=== PATIENT | male | born 1950 | race Caucasian/White ===

== ENCOUNTER 2019-02-27 05:45 | Day surgery (SDC) | payer MEDICARE, OTHER ==
[~2019-02-27] VITALS: Ht 180.3 cm; Wt 77.1 kg
[~2019-02-27 05:45] MED LIST: ACETAMINOPHEN325 M1 PO; ASPIRIN EC325 MG PO; ASPIRIN EC81 MG PO; ASPIRIN325 MG PO; DILAUDID2 MG PO; DILTIAZEM ER180 MG PO; FINASTERIDE5 MG PO; FLEXERIL10 MG PO; FLEXERIL5 MG PO; IBUPROFEN800 MG PO; ISOSORBIDE MONO30 MG PO; LIPITOR40 MG PO; LISINOPRIL5 MG PO; METOPROLOL TART25 MG PO; NEURONTIN100 MG PO; NITROGLYCERIN0.4 MG SL; RANITIDINE HCL150 M1 PO; TAMSULOSIN HCL0.4 MG PO; TRAMADOL HCL50 MG PO
--- NOTE | 2019-02-27 07:03 | NUR ---
0615) HEART RATE UP TO 118 UPON ARRIVAL. PATIENT DIDN'T TAKE DILTIAZEM TODAY AND DIDN'T DRINK MUCH WATER YESTURDAY. PER JURGEN DELANEY 500 ML BOLUS GIVEN. 0630) HEART RATE 104.
--- NOTE | 2019-02-27 08:18 | NUR ---
02/27/19 0818 Shawna Salas 0805 PT ARRIVED IN PACU SLEEPY LAYING ON L SIDE. 0810 OXYGEN REMOVED. PT AWAKE SITTING UP IN BED. NO C/O'S. 0818 SIPPING ON WATER.
--- NOTE | 2019-02-27 09:33 | NUR ---
PT ALERT, ORIENTED AND SUPPORTED BY HIS ZECHARIAH. BOTH SEEM PLEASANT, PRESENTLY LIVE NEAR [place] BUT PLAN ON MOVING TO TOWN. PT HAD FEW QUESTIONS, DECLINED PRAYER AT THIS TIME. WILL FOLLOW NEEDED
== END 2019-02-27 08:35 | disposition home or self-care (01) ==
LOC: DS 05:45 → OPS 05:45 → DS 06:45 → EDSTATUS 06:45 → OPS 06:45 → US 07:00 → OPS 08:35
PROVIDERS: Urology
PROC: BV49ZZZ Ultrasonography of Prostate and Seminal Vesicles (ICD-10-PCS; 2019-02-27)
PROC: 0VB03ZX Excision of Prostate, Percutaneous Approach, Diagnostic (ICD-10-PCS; principal; 2019-02-27 06:45)
DX: N41.1 Chronic prostatitis (principal); N40.0 Benign prostatic hyperplasia without lower urinary tract symptoms; I10 Essential (primary) hypertension; E78.2 Mixed hyperlipidemia; F17.200 Nicotine dependence, unspecified, uncomplicated; Z88.1 Allergy status to other antibiotic agents; Z88.8 Allergy status to other drugs, medicaments and biological substances; Z79.899 Other long term (current) drug therapy; Z79.82 Long term (current) use of aspirin
CPT/HCPCS: 00400; 76942; J0696; J1100; J2250; J2405; J2704; J3010; J7120